=== PATIENT | male | born 1995 | race Caucasian/White ===

== ENCOUNTER 2019-07-27 19:14 | Emergency (ER) | payer SELFPAY ==
[~2019-07-27] VITALS: Ht 175.3 cm; Wt 79.4 kg
[~2019-07-27 19:14] MED LIST: TRAMADOL HCL50 MG ORAL
[2019-07-27] MEDS ORDERED: CITALOPRAM HBR10 M1 ORAL (19:32)
[2019-07-27] MEDS ORDERED: KLONOPIN0.5 MG ORAL (19:32)
--- NOTE | 2019-07-27 19:34 | NUR ---
ED Nurse Note: pt walked in to ED C/O back pain since 1600 today. pt stated he twisted his back ealier. since then, he has been having a shooting pain. pt is alert x4. VSS
[2019-07-27 19:35] VITALS: BP 122/87
--- NOTE | 2019-07-27 20:20 | Emergency Room Report ---
History of Present Illness General Chief Complaint: Pain Source: Patient Present Illness HPI 24-year-old male presents to the emergency department complaining of 10 out of 10 severity localized pain, tenderness, swelling to the left rhomboid acute onset when attempting to get up out of the chair. Patient reports here to pop. Patient states pain is exacerbated upon turning of his torso or flexion. Patient denies trauma or fall he denies midline back pain he denies previous injury to the extremity. Patient states he is right-hand dominant. Patient reports some relief with rest. No aggravating or relieving factors. Denies CP, SOB, difficulty breathing, or hemoptysis. Allergies: Coded Allergies: No Known Allergies (Unverified , 09/15/15) Patient History Past Medical History: see triage record Past Surgical History: none Pertinent Family History: none Reviewed Nursing Documentation: PMH: Agreed; PSxH: Agreed Nursing Documentation-PMH Past Medical History: No History, Except For Review of Systems All Other Systems: negative except mentioned in HPI Physical Exam Vital Signs Date Time Temp Pulse Resp B/P (MAP) Pulse Ox O2 Delivery O2 Flow Rate FiO2 07/27/19 19:28 98.2 78 14 120/87 (98) 98 Room Air Sp02 EP Interpretation: reviewed, normal General Appearance: no apparent distress, alert, GCS 15, non-toxic Head: normocephalic, atraumatic Eyes: bilateral eye normal inspection, bilateral eye PERRL ENT: hearing grossly normal, normal voice Neck: full range of motion Respiratory: chest non-tender, lungs clear, normal breath sounds, no respiratory distress, no accessory muscle use, no wheezing, speaking full sentences Cardiovascular #1: regular rate, rhythm Gastrointestinal: non tender Musculoskeletal: back normal, gait/station normal, normal range of motion, swelling - left rhomboid, paraspinal musculature of the mid/upper thoracic area on the left side. no spinous process ttp, no bony deformities or step-offs. area is warm to the touch , no erythema or bruising. , other - FROM of the left arm Neurologic: alert, oriented x3, responsive, motor strength/tone normal, sensory intact, speech normal, grossly normal Psychiatric: judgement/insight normal Lymphatic: no adenopathy Medical Decision Making PA Attestation Dr. Johnson is my supervising Physician whom patient management has been discussed with. Diagnostic Impression: Primary Impression: Rhomboid muscle strain Qualified Codes: S29.012A - Strain of muscle and tendon of back wall of thorax , initial encounter Additional Impression: Back pain Qualified Codes: M54.9 - Dorsalgia, unspecified ER Course 24-year-old male presents to the emergency department complaining of 10 out of 10 severity localized pain, tenderness, swelling to the left rhomboid acute onset when attempting to get up out of the chair. Patient reports here to pop. Patient states pain is exacerbated upon turning of his torso or flexion. Patient denies trauma or fall he denies midline back pain he denies previous injury to the extremity. Patient states he is right-hand dominant. Patient reports some relief with rest. No aggravating or relieving factors. Denies CP, SOB, difficulty breathing, or hemoptysis. Ddx considered but are not limited to Fracture, dislocation, contusion, Sprain/ Strain/Spasm, Epidural abscess, Neoplastic mets. Vital signs: are WNL, pt. is afebrile H&PE are most consistent with musculoskeletal injury will perform imaging to r/ o fractures/dislocations. ORDERS: - X-ray not required, no bony ttp, PE does not warrant emergent imaging at this time. ED INTERVENTIONS: - Lidoderm Patch TP -I do not identify an emergent condition at this time. With current presentation , pt. is stable for close outpatient follow up and conservative treatment. D/ w pt. to return promptly to ED with worsening or new symptoms.- Pt. verbalizes' understanding and agreement with proposed treatment plan. DISCHARGE: At this time pt. is stable for d/c to home. Will provide printed patient care instructions, and any necessary prescriptions. Care plan and follow up instructions have been discussed with the patient prior to discharge. Last Vital Signs Date Time Temp Pulse Resp B/P (MAP) Pulse Ox O2 Delivery O2 Flow Rate FiO2 07/27/19 19:35 98.2 88 18 122/87 100 Room Air Disposition: HOME, SELF-CARE Condition: Stable Scripts Lidocaine Patch* (Lidoderm Patch*) 1 Each Adh..patch 1 PATCH TOPIC DAILY, #30 PATCH 0 Refills Patch(es) may remain in place for up to 12 hours in any 24-hour period. Prov: Taina Zamora 07/27/19 Ibuprofen* (MOTRIN*) 600 Mg Tablet 600 MG ORAL THREE TIMES A DAY, #30 TAB 0 Refills Prov: Taina Zamora 07/27/19 Methocarbamol* (ROBAXIN-750*) 750 Mg Tablet 750 MG PO QID, #28 TAB 0 Refills Prov: Taina Zamora 07/27/19 Departure Forms: Return to Work Return to Work Date: Jul 31, 2019 Work Restrictions: No Heavy Lifting, No Prolonged Standing Other Restrictions: May return Sooner if Symptoms have resolved. Return to Full Activity: Aug 04, 2019 Patient Instructions: Muscle Strain Additional Instructions: Take medications as directed. Follow up with a Primary Care Provider in 3-5 days, even if your symptoms have resolved. --Please review list of primary care clinics, if you do not already have a primary care provider Return sooner to ED if new symptoms occur, or current symptoms become worse. Do not drink alcohol, drive, or operate heavy machinery while taking Robaxin ( Muscle Relaxer) as this may cause drowsiness. - Please note that this Emergency Department Report was dictated using [employer] finishing range operator chief technology software, occasionally this can lead to erroneous entry secondary to interpretation by the dictation equipment. Taina Zamora Jul 27, 2019 20:20
[2019-07-27] MEDS ORDERED: LIDODERM700 M1 TOPIC (20:23)
[2019-07-27] MEDS ORDERED: IBUPROFEN600 MG ORAL (20:23)
[2019-07-27] MEDS ORDERED: ROBAXIN-750750 MG PO (20:23)
--- NOTE | 2019-07-27 20:34 | NUR ---
ER DISCHARGE NOTE: Patient is cleared to be discharged per ERMD, pt is aox4, on room air, with stable vital signs. pt was given dc and prescription instructions, pt was able to verbalize understanding, pt id band removed without complications. pt is able to ambulate with steady gait. pt took all belongings.
== END 2019-07-27 20:34 | disposition home or self-care (01) ==
LOC: EMR 20:18
DX: S29.012A Strain of muscle and tendon of back wall of thorax, initial encounter (principal); X50.1XXA Overexertion from prolonged static or awkward postures, initial encounter; Y92.9 Unspecified place or not applicable
CPT/HCPCS: 99282